=== PATIENT | female | born 1975 | race Caucasian/White ===

== ENCOUNTER 2020-10-30 14:04 | Emergency (ER) | payer OTHER ==
[~2020-10-30] VITALS: Ht 167.6 cm; Wt 123.5 kg
--- NOTE | 2020-10-30 14:16 | NUR ---
NAX1
--- NOTE | 2020-10-30 14:21 | NUR ---
NAX2- "IN BR"
--- NOTE | 2020-10-30 15:39 | NUR ---
BREAK RN. PT RESTING IN BED, ON MONITORS, VSS, STATES DIARRHEA X3 MONTHS, STATES NOW HAS SOME BLOOD WITH BOWL MOVEMENTS. ERMD AT BEDSIDE FOR ASSESSMENT.
[2020-10-30] MEDS ORDERED: SODIUM CHLORIDE 0.9% 1,000ML IVBOLUS ONE (16:00)
[2020-10-30] MEDS ORDERED: ONDANSETRON 2MG/ML, 2ML IVPush ONE (16:00)
[2020-10-30] MEDS ORDERED: SODIUM CHLORIDE FLUSH 10ML SYR IVF ONE (16:00)
[2020-10-30] MEDS ORDERED: ONDANSETRON 2MG/ML, 2ML ONE (16:04)
[2020-10-30 16:33] LABS: BASOPHILS % (AUTO) 1 % (0-1); EOSINOPHILS % (AUTO) 1 % (1-7); LYMPHOCYTES % (AUTO) 30 % (22-44); MEAN CORPUSCULAR HEMOGLOBIN 31.2 pg (27.0-34.8); MEAN CORPUSCULAR HGB CONC 34.1 g/dL (32.4-35.8); MEAN PLATELET VOLUME 7.2 fL (7.4-10.4); MONOCYTES % (AUTO) 7 % (2-9); NEUTROPHILS % (AUTO) 62 % (42-75); PLATELET COUNT 281 x10^3/uL (130-400); RED BLOOD COUNT 4.05 x10^6/uL (3.82-5.3); RED CELL DISTRIBUTION WIDTH 13.7 % (9.6-15.2)
[2020-10-30 16:35] LABS: ALANINE AMINOTRANSFERASE 27 U/L (12-78); ALBUMIN 3.5 g/dL (3.4-5.0); ANION GAP 5 mmol/L (5-15); CALCIUM 8.6 mg/dL (8.5-10.1); CHLORIDE 109 mmol/L (98-107); CREATININE 0.56 mg/dL (0.55-1.02)
[2020-10-30 16:37] LABS: ALKALINE PHOSPHATASE 77 U/L (45-117); BILIRUBIN,TOTAL 0.9 mg/dL (0.2-1.0); TOTAL PROTEIN 7.3 g/dL (6.4-8.2)
--- NOTE | 2020-10-30 16:54 | NUR ---
PT TAKEN TO CT IN STABLE CONDITION.
[2020-10-30] MEDS ORDERED: OMNIPAQUE 350 MG/ML, 100ML BOTTLE ONE (17:23)
--- NOTE | 2020-10-30 17:41 | NUR ---
PT CHART REVIEWED AND PLACED FOR RECHECK.
--- NOTE | 2020-10-30 17:50 | NUR ---
PT RESTING ON GURNEY. NADN. DUNLAP.
[2020-10-30 18:32] VITALS: BP 116/59
--- NOTE | 2020-10-30 18:32 | NUR ---
ERP DR. SALDAÑA AT BEDSIDE FOR RE-EVAL.
== END 2020-10-30 18:50 | disposition home or self-care (01) ==
LOC: ED 18:11
DX: R19.7 Diarrhea, unspecified (principal); R10.9 Unspecified abdominal pain; G89.29 Other chronic pain; R11.0 Nausea
CPT/HCPCS: 36415; 74177; 80053; 83690; 85025; 96361; 96374; 99285; J2405; J7030; Q9967